=== PATIENT | female | born 1980 | race Caucasian/White ===

== ENCOUNTER 2021-04-13 22:44 | Emergency (ER) | payer MEDICAID, SELFPAY ==
[2021-04-13 22:47] VITALS: TEMP 36.4
--- NOTE | 2021-04-13 22:57 | ED.VIS.DENTA ---
HPI History of Present Illness Chief Complaint: Dental Detail of Chief Complaint: Acute dental pain right lower molar Informant: patient Onset/Context/Timing Onset: Hours (Three quarters of an hour prior to presentation) Context: Sudden Onset Timing: Continuous Quality: Pain Location: Right lower molar Current Severity: Severe Maximum Severity: Severe Worsened by: Nothing Relieved by: - (Nothing) Associated Symptoms Assocated Symptom - Dental: Negative for fever, jaw swelling, face swelling, cold sensitivity or hot sensitivity Narrative Narrative: Patient is a 40-year-old woman with poor dentition who presents with abrupt onset of pain right lower molar tooth #31. Patient has obvious dental caries. There is swelling of the gum. There is no facial swelling noted. She denies change in voice. She denies difficulty opening closing her mouth. She denies drink anything hot or cold prior to presentation. She presented immediately because of pain. She denies history of medic fever, heart murmur, mitral valve prolapse or being immune suppressed. She denies IV drug use. Prior similar symptoms: No Recent Illness/Hospitalization: No PFSH PFS Medical History (Updated 04/13/21 @ 23:[address] Mervin Slade MD) Hypothyroidism Home Medications levothyroxine 100 mcg PO DAILY 01/20/13 [History Last Taken Unknown] diazepam 4 mg PO TID PRN PRN #10 tablet 01/10/16 [Rx Last Taken Unknown] gabapentin 100 mg PO TIDCM 01/10/16 [History Last Taken Unknown] hydrocodone-acetaminophen 1 tab PO Q6H PRN PRN 3 Days #10 tablet 04/13/21 [Rx Last Taken Unknown] naproxen 500 mg PO BID #14 tab 04/13/21 [Rx Last Taken Unknown] penicillin V potassium 500 mg PO 4X/DAY #28 tab 04/13/21 [Rx Last Taken Unknown] Allergy/AdvReac Type Severity Reaction Status Date / Time No Known Allergies Allergy Verified 01/10/16 17:37 Social History (Updated 04/13/21 @ 22:[address] Mervin Slade MD) household members: significant other Smoking Status: Current every day smoker alcohol intake: current alcohol intake frequency: other substance use type: does not use ROS ROS ED Constitutional Constitutional ED: Denies chills, fever(s), subjective, sweats or weight loss Eyes Eyes: Denies blurry vision or change in vision ENT ENT ED: Reports other Details: Dental pain ; Denies ear pain, rhinorrhea or sore throat Cardiovascular Cardiovascular: Denies chest pain, palpitations or racing heartbeat Respiratory/Chest Respiratory/Chest: Denies cough or dyspnea Gastrointestinal Gastrointestinal: Denies nausea or vomiting Integumentary Denies abscess or rash Neurologic Neurologic: Denies headache(s) Hematologic/Lymphatic Hematologic/Lymphatic: Denies easy bleeding or easy bruising EXAM Physical Exam Const Vital Signs: 04/13/21 22:47 Temperature 97.6 F L Temperature Source Temporal Positive well nourished and well developed General Appearance ED: well developed; Negative for NAD or pallor HEENT Reports TM's clear HEENT Narrative: Patient has significant dental caries with exposure of dentin and pulp. Tooth #31 as of large defect. There is purulent material noted at in the [place]. There is evidence of gingival swelling. There is no trismus. Trachea is midline. There is no in-store extra stridor. There is no swelling of the sublingular region. There is no firmness in the submental region. tenderness; Negative for trauma Face and Sinus: Negative for sinuses nontender Tympanic Membrane ED: Yes TM's clear Mouth ED: Yes oral and palatal mucosa normal, Yes lips normal, Yes tongue normal, Yes salivary gland normal, No mouth trauma, No oral and palatal mucosa abnormal and No salivary gland abnormal Mouth: oral and palatal mucosa normal, lips normal, tongue normal, salivary gland normal, No mouth trauma, No oral and palatal mucosa abnormal and No salivary gland abnormal Teeth and Gingiva: abnormal tooth and associated gingiva, caries, gingiva abnormal, poor dentition and teeth discoloration Throat: posterior oropharynx normal Eyes PERRL and EOMs intact bilaterally General Eye ED: Negative for pale conjunctiva or scleral icterus Neck no lymphadenopathy, supple and no JVD General: normal visual inspection; Negative for anterior neck swelling Lymph Lymphatic: no lymphadenopathy noted Resp normal respiratory effort and clear to auscultation bilaterally Cardio regular rate, regular rhythm, S1 normal heart sound, S2 normal heart sound and no murmurs Neuro oriented x3 and CN's II-XII intact bilaterally Sensorium / Orientation: alert Psych Mood & Affect: tearful Skin no rashes or lesions noted and no wounds General Skin Exam: Negative for pallor MDM MDM MDM Narrative Medical decision making narrative: Patient has dental pain. This may represent a pulpitis. Patient was treated with NSAID, opiate analgesia and antibiotics. She was referred to dentist since she has numerous dental caries that will require definitive care. Discharge Plan Triage Chief Complaint: Dental ED Provider: Mervin Slade Dx/Rx/DC Orders Clinical Impression: Dental caries into pulp, Dental caries extending into dentine, Acute pulpitis, Chronic periodontal disease, Gingivitis Instructions: ED Dental Cavity Prescriptions: New hydrocodone-acetaminophen [hydrocodone-acetaminophen] 1 TABLET tablet 1 tab PO Q6H PRN PRN (Reason: Pain) 3 Days Qty: 10 RF: 0 penicillin V potassium 500 MG tablet 500 mg PO 4X/DAY Qty: 28 RF: 0 naproxen 500 MG tablet 500 mg PO BID Qty: 14 RF: 0 No Action levothyroxine 100 MCG tablet 100 mcg PO DAILY RF: 0 gabapentin 100 MG capsule 100 mg PO TIDCM RF: 0 diazepam 2 MG tablet 4 mg PO TID PRN PRN (Reason: Muscle Spasm) Qty: 10 RF: 0 Primary Care Provider: Gabe Chiang Referrals: Gabe Chiang MD [Primary Care Provider] - Disposition Disposition: Home, Self Care
[2021-04-13] MEDS: Naproxen 250 MG Tablet 500 MG PO (23:05)
[2021-04-13] MEDS: HYDROcodone Bitartrate/Apap 5/325 Tablet PO (23:05)
[2021-04-13] MEDS: Penicillin Vk 250 MG Tablet 500 MG PO (23:05)
== END 2021-04-13 23:15 | disposition home or self-care (01) ==
LOC: ED 23:10
PROVIDERS: Emergency Provider Emergency Medicine; PCP Family Medicine; Visit Provider Emergency Medicine
DX: K02.9 Dental caries, unspecified (principal); K04.01 Reversible pulpitis; K05.30 Chronic periodontitis, unspecified; K05.10 Chronic gingivitis, plaque induced; F17.200 Nicotine dependence, unspecified, uncomplicated
CPT/HCPCS: 99283

== ENCOUNTER 2022-01-14 00:01 | Emergency (ER) | payer MEDICAID, SELFPAY ==
[2022-01-14 00:02] VITALS: BP 120/83; PULSE 100; RESP 18; TEMP 36.8; O2SAT 100; BMI 21.9
--- NOTE | 2022-01-14 00:20 | ED.VIS.FEGU ---
HPI HPI - Female History of Present Illness Chief Complaint: Female C/O Narrative Narrative: Patient is a 41-year-old female with past medical history of hypothyroidism and opioid dependence currently on Suboxone. She states that the boyfriend she has had for approximately 10 years recently cheated on her and tested positive for gonorrhea. She states she is noted she has been having increased urinary frequency with dysuria and some vaginal discharge. She is concerned she developed the infection as well and secondary to this comes in for evaluation. [facility] Medical History (Updated 01/14/22 @ 01:[address] Leandro Ackerman DO) Hypothyroidism Home Medications levothyroxine 100 mcg tablet 100 mcg PO DAILY THYROID 01/20/13 [History Last Taken Unknown] diazepam 2 mg tablet 4 mg PO TID PRN PRN Muscle Spasm ##10 01/10/16 [Rx Last Taken Unknown] gabapentin 100 mg capsule 100 mg PO TIDCM FIBRO 01/10/16 [History Last Taken Unknown] hydrocodone-acetaminophen 5-325mg 5mg-325mg 1 tab PO Q6H PRN PRN Pain 3 days #10 TABLETS 04/13/21 [Rx Last Taken Unknown] naproxen 500 mg tablet 500 mg PO BID #14 tabs 04/13/21 [Rx Last Taken Unknown] penicillin V potassium 500 mg tablet 500 mg PO 4X/DAY #28 tabs 04/13/21 [Rx Last Taken Unknown] Allergy/AdvReac Type Severity Reaction Status Date / Time No Known Allergies Allergy Verified 01/14/22 00:04 Social History (Updated 04/13/21 @ 22:[address] Mervin Slade MD) household members: significant other Smoking Status: Current every day smoker tobacco type: cigarettes alcohol intake: current alcohol intake frequency: other substance use type: does not use ROS ROS ED Constitutional Constitutional ED: Denies chills or fever(s) ENT ENT ED: Denies sore throat Cardiovascular Cardiovascular: Denies chest pain Respiratory/Chest Respiratory/Chest: Denies cough or dyspnea Gastrointestinal Gastrointestinal: Denies abdominal pain, diarrhea, nausea or vomiting Genitourinary Genitourinary ED: Reports dysuria and other Details: Positive vaginal discharge Musculoskeletal Musculoskeletal: Denies myalgias Integumentary Denies rash Neurologic Neurologic: Denies headache(s) Hematologic/Lymphatic Hematologic/Lymphatic: Denies easy bleeding or easy bruising EXAM Physical Exam Const Vital Signs: 01/14/22 00:02 Temperature 98.3 F Temperature Source Temporal Pulse Rate 100 Respiratory Rate 18 Blood Pressure 120/83 H Blood Pressure Mean 95 Pulse Ox 100 Oxygen Delivery Method Room Air Positive well nourished and well developed General Appearance ED: well developed Eyes PERRL and EOMs intact bilaterally Neck supple Resp normal respiratory effort and clear to auscultation bilaterally Cardio regular rate and regular rhythm GI normal to inspection, nondistended, normoactive bowel sounds, soft to palpation, non-tender, non-distended and no masses GI Narrative: No voluntary guarding or rigidity Auscultation: normoactive bowel sounds Palpation: soft Narrative: Patient deferred Extremity normal to inspection Neuro oriented x3 and CN's II-XII intact bilaterally Sensorium / Orientation: alert Psych mental status grossly normal Skin no rashes or lesions noted MDM MDM MDM Narrative Medical decision making narrative: Patient presented to the ER with stable vitals and a soft nonsurgical abdomen. She reported urinary frequency and dysuria and vaginal discharge as well as exposure to STD. Secondary to this a urine sample was obtained and gonorrhea and chlamydia were ordered. As the patient has known exposure to gonorrhea will not wait for testing to result and should be treated with Rocephin and Zithromax. As she does not have history or physical exam findings consistent with PID or Irineo-Andrew Aldair syndrome she does not need further work-up and can be discharged home Lab Data Attestation: I reviewed the patient's lab results. Labs: Laboratory Results - last 24 hr 01/14/22 00:35 Urine Color Yellow Urine Clarity Cloudy Urine pH 6.0 Ur Specific [place] 1.025 Urine Protein 30 H Urine Glucose (UA) Normal Urine Ketones 5 H Urine Occult Blood 150 H Urine Nitrite Negative Urine Bilirubin Negative Urine Urobilinogen Normal Ur Leukocyte Esterase 500 H Urine RBC 5-10 SEEN Urine WBC >100 SEEN Ur Squamous Epith Cells 10-25 SEEN Urine Bacteria 4+ Urine Mucus 0 SEEN Urine Test Negative Discharge Plan Triage Chief Complaint: Female C/O ED Provider: Leandro Ackerman Dx/Rx/DC Orders Clinical Impression: STD exposure, Hypothyroidism, Opioid dependence Instructions: Gonorrhea Prescriptions: No Action levothyroxine 100 MCG tablet 100 mcg PO DAILY gabapentin 100 MG capsule 100 mg PO TIDCM diazepam 2 MG tablet 4 mg PO TID PRN PRN (Reason: Muscle Spasm) Qty: 10 0RF hydrocodone-acetaminophen [hydrocodone-acetaminophen] 1 TABLET tablet 1 tab PO Q6H PRN PRN (Reason: Pain) 3 Days Qty: 10 0RF penicillin V potassium 500 MG tablet 500 mg PO 4X/DAY Qty: 28 0RF naproxen 500 MG tablet 500 mg PO BID Qty: 14 0RF Primary Care Provider: Gabe Chiang Referrals: Gabe Chiang MD [Primary Care Provider] - Activity Restrictions/Additional Instructions: The medication you were given today in the ER will resolve the infection but will take approximately 3 days to do so. Refrain from sexual activity for at least 7 days to ensure eradication of the infection. If you have persistent symptoms or any further concerns return to the ER for repeat evaluation Disposition Disposition: Home, Self Care
[2022-01-14] MEDS: Azithromycin 250 MG Tablet 1000 MG PO (00:26)
[2022-01-14 00:42] LABS: Mucous, Urine 0 SEEN /hpf (<or=2+)
[2022-01-14 00:48] LABS: Color, Urine Yellow (Yellow); Glucose, Dipstick Normal (Normal); Ketone-Dipstick 5 mg/dl (Negative); Leukocyte Esterase-Dipstick 500 /ul (Negative); Nitrite-Dipstick Negative (Negative); Occult Blood-Urine 150 /ul (Negative); Protein-Dipstick 30 mg/dl (Negative); Specific Gravity, Urine 1.025 (1.002-1.030); Urine Bilirubin Dipstick Negative (Negative); Urine Clarity Cloudy (Clear); Urine Urobilinogen Normal (Normal)
[2022-01-14] MEDS: Ceftriaxone 500 MG Vial IM (00:51)
[2022-01-14 00:54] LABS: Red Blood Cells-Urine 5-10 SEEN /hpf (0-5); Squamous Epithelial Cells - UA 10-25 SEEN /hpf (5-10); White Blood Cells >100 SEEN /hpf (0-5)
[2022-01-14 00:55] LABS: Bacteria 4+ /hpf (None Seen); Internal QC Validated? YES +Cl - CLEAR BKGD; Pregnancy, Urine Negative Negative
[2022-01-14 01:13] VITALS: PULSE 75; RESP 18; O2SAT 99
[2022-01-14 04:26] LABS: Chlamydia Trachomatis by PCR Negative (Negative)
[2022-01-14 04:27] LABS: Neisserai gonorrhoeae by PCR Positive (Negative); Probe Check PASS
== END 2022-01-14 01:14 | disposition home or self-care (01) ==
LOC: ED 00:28
PROVIDERS: Emergency Provider Emergency Medicine; PCP Family Medicine; Visit Provider Emergency Medicine
DX: Z20.2 Contact with and (suspected) exposure to infections with a predominantly sexual mode of transmission (principal); F11.20 Opioid dependence, uncomplicated; E03.9 Hypothyroidism, unspecified; F17.210 Nicotine dependence, cigarettes, uncomplicated
CPT/HCPCS: 81001; 81025; 87491; 87591; 96372; 99283

== ENCOUNTER 2023-10-03 02:15 | Emergency (ER) | payer MEDICAID, SELFPAY ==
[2023-10-03 02:15] VITALS: BP 112/79; PULSE 95; RESP 17; TEMP 36.1; O2SAT 98; BMI 23.1
--- NOTE | 2023-10-03 02:31 | EX.ED.DYSGE1 ---
HPI History of Present Illness Chief Complaint: Wound Check Informant: patient Narrative Narrative: Patient is a 42-year-old female with past medical history of hypothyroidism. She states that she is unsure if she is being bitten by spiders or some type of insect but has noticed multiple lesions across her body around her feet and ankles as well as arms and upper back. She states the areas are pruritic in nature. She denies any fevers or chills or difficulty breathing or swallowing. However she had concern there could be an infectious process/component associated with them and therefore comes in for evaluation [facility] Medical History (Updated 10/03/23 @ 05:[address] Leandro Ackerman, DO) Hypothyroidism Home Medications ?Medication ?Instructions ?Recorded ?Last Taken ?Type buprenorphine 8 mg-naloxone 2 mg 1 ea sublingual TID 10/03/23 Unknown History sublingual film desonide 0.05 % topical cream 1 applic topical TID PRN itching 10/03/23 Unknown Rx #60 grams prednisone 20 mg tablet 40 mg (2 x 20 mg) PO DAILY 5 days 10/03/23 Unknown Rx #10 tabs sulfamethoxazole 800 1 tab PO BID 7 days #14 tabs 10/03/23 Unknown Rx mg-trimethoprim 160 mg tablet (Bactrim DS) Allergy/AdvReac Type Severity Reaction Status Date / Time No Known Allergies Allergy Verified 10/03/23 02:16 Social History (Updated 04/13/21 @ 22:[address] Mervin Slade MD) household members: significant other Smoking Status: Current every day smoker tobacco type: cigarettes alcohol intake: current alcohol intake frequency: other substance use type: does not use ROS ROS ED Constitutional Constitutional ED: Denies chills or fever(s) ENT ENT ED: Denies sore throat Cardiovascular Cardiovascular: Denies chest pain Respiratory/Chest Respiratory/Chest: Denies cough or dyspnea Gastrointestinal Gastrointestinal: Denies abdominal pain, diarrhea, nausea or vomiting Genitourinary Genitourinary ED: Denies dysuria Musculoskeletal Musculoskeletal: Denies myalgias Integumentary Reports rash Neurologic Neurologic: Denies headache(s) Hematologic/Lymphatic Hematologic/Lymphatic: Denies easy bleeding or easy bruising Allergic/Immunologic Allergic/Immunologic ED: Denies mouth swelling or tongue swelling EXAM Physical Exam Const Vital Signs: 10/03/23 02:15 10/03/23 02:40 Temperature 97 F L 97 F L Temperature Source Temporal Pulse Rate 95 90 Respiratory Rate 17 17 Blood Pressure 112/79 112/79 Blood Pressure Mean 90 90 Pulse Ox 98 98 Oxygen Delivery Method Room Air Positive well nourished and well developed General Appearance ED: well developed HEENT Reports moist mucous membranes HEENT Narrative: No tongue or lip swelling no oral lesions no airway edema or compromise Eyes PERRL and EOMs intact bilaterally Neck supple Neck Narrative: No nuchal rigidity or meningeal signs Resp normal respiratory effort and clear to auscultation bilaterally Resp Narrative: No nasal flaring retractions tachypnea or accessory muscle use Cardio regular rate and regular rhythm Extremity Extremity Narrative: Patient has blanchable erythematous urticarial-like lesions with small circular puncture wounds in the center consistent with insect bite or sting. There are lesions located along the dorsal aspect of the right foot and ankle as well as the left ankle. Patient has similar lesions along the right dorsum hand and the left humerus. There are also lesions along the right upper back. There is no retained stinger or foreign object. There is no purulent discharge or lymphangitic streaking. No involvement of the palms or soles. Neuro oriented x3, CN's II-XII intact bilaterally and no sensory deficits noted Sensorium / Orientation: alert Motor Exam: strength 5/5 throughout Psych mental status grossly normal Skin Skin Narrative: Urticarial lesions/insect bite/sting as documented above without secondary findings to suggest infection MDM MDM MDM Narrative Medical decision making narrative: Patient arrived to the ER with stable vitals and in no acute respiratory distress. Physical exam shows changes consistent with insect bite/sting. There is no retained stinger or foreign object and she does not have lymphangitic streaking fever or warmth to suggest an infectious process. There is no signs of anaphylaxis as there is no tongue or lip swelling. No signs of Browne-Ricardo syndrome as there is no oral lesions. Therefore at this time as patient is not in respiratory distress her exam indicates inflammatory/allergic process and not infectious I do not feel there is need for further workup and she can be given steroids and discharged home. History & Record Review Discussion w/independent historian: Patient Discharge Plan Triage Chief Complaint: Wound Check ED Provider: Leandro Ackerman Dx/Rx/DC Orders Clinical Impression: Insect bite, Hypothyroidism Instructions: ED Insect Sting, Local Reaction Prescriptions: New prednisone 20 mg tablet 40 mg PO DAILY 5 Days Qty: 10 0RF desonide 0.05 % cream 1 applic topical TID PRN (Reason: itching) Qty: 60 0RF sulfamethoxazole-trimethoprim [Bactrim DS] 800-160 mg tablet 1 tab PO BID 7 Days Qty: 14 0RF No Action buprenorphine-naloxone 8-2 mg film 1 ea sublingual TID Primary Care Provider: Gabe Chiang Referrals: Gabe Chiang MD [Primary Care Provider] - Activity Restrictions/Additional Instructions: Your exam and symptoms are consistent with an acute allergic reaction from an insect bite/sting. Use the oral prednisone and a topical steroid to reduce itch and inflammation. If there is no improvement after 5 days of treatment and there is concern for secondary infection then fill the antibiotic that was prescribed from the ER. Please return to the ER if you have any further concerns or worsening of symptoms. Print Language: Polish Disposition Disposition: Home, Self Care Discharge Date/Time: 10/03/23 02:40
[2023-10-03] MEDS: dexAMETHasone 10 MG/ML Vial PO.IVFORM (02:38)
[2023-10-03 02:40] VITALS: BP 112/79; PULSE 90; RESP 17; TEMP 36.1; O2SAT 98
== END 2023-10-03 02:40 | disposition home or self-care (01) ==
LOC: ED 02:35
PROVIDERS: Emergency Provider Emergency Medicine; PCP Family Medicine; Visit Provider Emergency Medicine
DX: S90.561A Insect bite (nonvenomous), right ankle, initial encounter (principal); S90.562A Insect bite (nonvenomous), left ankle, initial encounter; S40.861A Insect bite (nonvenomous) of right upper arm, initial encounter; S40.862A Insect bite (nonvenomous) of left upper arm, initial encounter; S10.86XA Insect bite of other specified part of neck, initial encounter; F17.210 Nicotine dependence, cigarettes, uncomplicated; E03.9 Hypothyroidism, unspecified; W57.XXXA Bitten or stung by nonvenomous insect and other nonvenomous arthropods, initial encounter
CPT/HCPCS: 99282

== ENCOUNTER 2024-07-03 12:38 | Emergency (ER) | payer MEDICAID, SELFPAY ==
[2024-07-03 12:39] VITALS: BP 128/89; PULSE 98; RESP 13; TEMP 37.2; O2SAT 97; BMI 25.2
--- NOTE | 2024-07-03 12:48 | EDS_ITS ---
HPI History of Present Illness Chief Complaint: Other, Pain/Inj Detail of Chief Complaint: Dental pain that started yesterday and facial swelling noted today Informant: patient Onset/Context/Timing Onset: Today and Yesterday Context: Sudden Onset Timing: Continuous Quality: Pain Location: Tooth #8 9 Current Severity: Mild Maximum Severity: Moderate Worsened by: Air Relieved by: Nothing Associated Symptoms Associated Symptoms: Facial swelling Narrative Narrative: Patient is a 43-year-old woman. She has history of hypothyroidism. She also has history of opiate dependency. She denies fever, chills night sweats. She denies difficulty opening or closing her mouth. Denies change in voice. Denies drooling. Denies history of medic fever, heart murmur mitral valve prolapse or SBE. She denies skin lesions. She denies myalgias arthralgias. She does not have a dentist. Prior similar symptoms: Yes Recent Illness/Hospitalization: No PFSH [facility] Medical History Hypothyroidism Home Medications ?Medication ?Instructions ?Recorded ?Last Taken ?Type buprenorphine 8 mg-naloxone 2 mg 1 ea sublingual TID 0 10/03/23 Unknown History sublingual film naproxen 500 mg tablet 500 mg PO BID #14 tabs 07/03 Unknown Rx penicillin V potassium 500 mg 500 mg PO 4X/DAY #40 tab s 07/03/24 Unknown Rx tablet Allergy/AdvReac Type Severity Reaction Status Date / Time No Known Allergies Allergy Verified 07/03/24 12:41 Social History household members: significant other Smoking Status: Current every day smoker tobacco type: cigarettes alcohol intake: current alcohol intake frequency: other substance use type: does not use ROS ROS ED Constitutional Constitutional ED: Denies chills, fever(s), subjective or sweats Eyes Eyes: Denies blurry vision, change in vision or diplopia ENT ENT ED: Denies ear pain, rhinorrhea or sore throat Cardiovascular Cardiovascular: Denies chest pain, palpitations or racing heartbeat Respiratory/Chest Respiratory/Chest: Denies dyspnea Gastrointestinal Gastrointestinal: Denies nausea or vomiting Musculoskeletal Musculoskeletal: Denies neck pain Integumentary Denies rash Neurologic Neurologic: Denies headache(s) EXAM Physical Exam Const Vital Signs: 07/03/24 12:39 Temperature 98.9 F Temperature Source Oral Pulse Rate 98 Respiratory Rate 13 Blood Pressure 128/89 H Blood Pressure Mean 102 Pulse Ox 97 Oxygen Delivery Method Room Air Positive well nourished and well developed Constitutional Narrative: Patient has obvious facial swelling. She is in no obvious discomfort. Does not appear ill or toxic. General Appearance ED: well developed; Negative for cyanotic, diaphoretic or pallor HEENT Reports moist mucous membranes HEENT Narrative: Patient has poor dentition. Tooth #8 and 9 are eroded to the gum. There is multiple caries noted. Either tooth #8 or tooth #9 is the cause of her infection. There is no evidence of facial cellulitis. There is no fluctuance noted. Findings consistent with an apical abscess. It has not fistulized yet. There is no trismus. Eyes PERRL and EOMs intact bilaterally General Eye ED: Negative for pale conjunctiva or scleral icterus Neck no lymphadenopathy, supple and no JVD Neck Narrative: Trachea is midline. There is no stridor. Resp clear to auscultation bilaterally Cardio regular rate, regular rhythm, S1 normal heart sound, S2 normal heart sound and no murmurs Neuro oriented x3 and CN's II-XII intact bilaterally Sensorium / Orientation: alert Psych mental status grossly normal Skin no rashes or lesions noted, no wounds and skin turgor normal General Skin Exam: Negative for jaundice or pallor MDM MDM MDM Narrative Medical decision making narrative: Patient with apical dental abscess due to multiple dental caries. Will treat with penicillin, NSAID and 1 dose of [place]. There is no evidence of facial cellulitis. Discharge Plan Triage Chief Complaint: Other, Pain/Inj ED Provider: Mervin Slade Dx/Rx/DC Orders Clinical Impression: Abscess, apical, Hypothyroidism, Dental caries extending into dentine, Dental caries extending into pulp Instructions: ED Dental Abscess Prescriptions: New penicillin V potassium 500 mg tablet 500 mg PO 4X/DAY Qty: 40 0RF naproxen 500 mg tablet 500 mg PO BID Qty: 14 0RF No Action buprenorphine-naloxone 8-2 mg film 1 ea sublingual TID Primary Care Provider: Gabe Chiang Referrals: Gabe Chiang MD [Primary Care Provider] - Activity Restrictions/Additional Instructions: Take medicine as prescribed until gone 2. Call the dentist on the dental sheet to get an appointment to be seen within the next several days. Print Language: [place] Disposition Disposition: Home, Self Care
[2024-07-03] MEDS: Penicillin Vk 250 MG Tablet 500 MG PO (12:59)
[2024-07-03] MEDS: Naproxen 500 MG Tablet PO (13:00)
[2024-07-03] MEDS: HYDROcodone Bitartrate/Apap 5/325 Tablet PO (13:00)
== END 2024-07-03 13:16 | disposition home or self-care (01) ==
PROVIDERS: Emergency Provider Emergency Medicine; PCP Family Medicine; Visit Provider Emergency Medicine
DX: K04.7 Periapical abscess without sinus (principal); E03.9 Hypothyroidism, unspecified; K02.9 Dental caries, unspecified; F17.210 Nicotine dependence, cigarettes, uncomplicated
CPT/HCPCS: 99282